=== PATIENT | male | born 1980 | race Caucasian/White ===

== ENCOUNTER 2018-07-10 12:48 | Emergency (ER) | payer OTHER ==
[~2018-07-10] VITALS: Ht 175.3 cm; Wt 86.6 kg
[2018-07-10] MEDS ORDERED: LOSARTAN POTASS50 MG PO (13:19)
== END 2018-07-10 15:55 | disposition home or self-care (01) ==
LOC: ER 12:48
DX: N48.22 Cellulitis of corpus cavernosum and penis (principal)

== ENCOUNTER 2018-07-10 19:36 | Emergency (ER) | payer OTHER ==
[~2018-07-10] VITALS: Ht 175.3 cm; Wt 86.6 kg
[~2018-07-10 19:36] MED LIST: LOSARTAN POTASS50 MG PO
== END 2018-07-10 21:55 | disposition home or self-care (01) ==
LOC: ER 19:36
DX: N48.22 Cellulitis of corpus cavernosum and penis (principal)

== ENCOUNTER 2018-12-04 09:35 | Emergency (ER) | payer OTHER ==
[~2018-12-04] VITALS: Ht 175.3 cm; Wt 79.4 kg
[2018-12-04] MEDS ORDERED: AMOXICILLI125 MG/5 M (10:00)
[2018-12-04] MEDS ORDERED: ZANTAC150 M3 (10:00)
[2018-12-04] MEDS ORDERED: BENTYL10 MG/1 ML (10:00)
== END 2018-12-04 13:18 | disposition home or self-care (01) ==
LOC: ER 09:35
DX: J11.1 Influenza due to unidentified influenza virus with other respiratory manifestations (principal)

== ENCOUNTER 2023-05-23 09:40 | Emergency (ER) | payer OTHER ==
[~2023-05-23] VITALS: Ht 175.3 cm; Wt 84.8 kg
[~2023-05-23 09:40] MED LIST changes: +AMOXICILLI125 MG/5 M; +BENTYL10 MG/1 ML; +ZANTAC150 M3
[2023-05-23 13:04] LABS: HEMATOCRIT 44.9 % (39.0-48.0); HEMOGLOBIN 15.6 g/dL (13-16.00); MEAN CELL VOLUME 94.5 fL (80.0-100.00); MEAN CORPUSCULAR HEMOGLOBIN 32.7 pg (27.00-32.0); MEAN CORPUSCULAR HGB CONC 34.6 g/dl (32.0-36.0); PLATELET COUNT 134 K/uL (150-450); RED BLOOD COUNT 4.76 M/uL (4.00-6.00); RED CELL DISTRIBUTION WIDTH 13.7 % (11.5-14.5)
== END 2023-05-23 14:50 | disposition home or self-care (01) ==
LOC: ER 09:40
PROVIDERS: General Practice
DX: J06.9 Acute upper respiratory infection, unspecified (principal)